=== PATIENT | female | born 1950 | race Caucasian/White ===

== ENCOUNTER 2023-01-10 10:13 | Outpatient (CLI) | payer MEDICARE | END 2023-01-10 10:14 | disposition home or self-care (01) | LOC: CSHMAMMO 10:13 | PROVIDERS: ATTEND Registered Nurse | DX: Z12.31 Encounter for screening mammogram for malignant neoplasm of breast (principal); Z78.0 Asymptomatic menopausal state; M85.89 Other specified disorders of bone density and structure, multiple sites; M85.88 Other specified disorders of bone density and structure, other site | CPT/HCPCS: 77063; 77067; 77080 ==

== ENCOUNTER 2024-06-16 10:56 | Outpatient (CLI) | payer MEDICARE | END 2024-06-16 10:57 | disposition home or self-care (01) | LOC: CSHMAMMO 10:56 | PROVIDERS: ATTEND Registered Nurse | DX: Z12.31 Encounter for screening mammogram for malignant neoplasm of breast (principal) | CPT/HCPCS: 77063; 77067 ==

== ENCOUNTER 2025-07-07 12:10 | Outpatient (CLI) | payer MEDICARE | END 2025-07-07 12:11 | disposition home or self-care (01) | LOC: CSHMAMMO 12:10 | PROVIDERS: ATTEND Registered Nurse | DX: Z12.31 Encounter for screening mammogram for malignant neoplasm of breast (principal) | CPT/HCPCS: 77063; 77067 ==